=== PATIENT | male | born 1960 | race American Indian/Alaskan Native ===

== ENCOUNTER 2016-11-14 12:50 | Outpatient (CLI) | payer OTHER ==
--- NOTE | 2016-11-14 13:35 | XRay Report ---
RIGHT HIP: Pain The bony architecture is intact without evidence of fracture or dislocation. No significant soft tissue abnormality is seen. IMPRESSION: Normal right hip.
== END 2016-11-14 12:51 | disposition home or self-care (01) ==
LOC: XRAY 12:50
PROVIDERS: ATTEND Internal Medicine
DX: M25.551 Pain in right hip (principal)